=== PATIENT | female | born 1985 | race Caucasian/White ===

== ENCOUNTER 2019-10-22 05:39 | Inpatient (IN) ==
[2019-10-22] MEDS ORDERED: CEFAZOLIN 2,000 MG in SYRINGE 0 ML IV SCH (06:00)
[2019-10-22] MEDS ORDERED: LACTATED RINGER'S 1,000 ML IV SCH ×3 (06:00→11:33)
[2019-10-22] MEDS ORDERED: CITRIC ACID/SODIUM CITRATE 15 ML UDC PO SCH (06:00)
[2019-10-22] MEDS ORDERED: fentaNYL citrate 100 MCG/2 ML VIAL ONE (06:47)
[2019-10-22] MEDS ORDERED: OXYTOCIN 10 UNITS/ML VIAL ONE ×4 (06:47→08:37)
[2019-10-22] MEDS ORDERED: PHENYLEPHRINE HCL 10 MG/ML VIAL ONE (06:47)
[2019-10-22] MEDS ORDERED: METOCLOPRAMIDE HCL INJ 5 MG/ML 2 ML VIAL ONE (06:47)
[2019-10-22] MEDS ORDERED: ONDANSETRON INJ 2 MG/ML 2 ML VIAL ONE (06:47)
[2019-10-22] MEDS ORDERED: MoRPHine SULFATE PF 1 MG/ML 10 ML AMP/VIAL ONE (06:47)
[2019-10-22] MEDS ORDERED: ePHEDrine sulfate 50 MG/ML AMP ONE (06:47)
[2019-10-22 06:48] LABS: Basophils # (auto) 0.05 K/uL (0-0.2); Basophils % (auto) 0.5 %; Eosinophils # (auto) 0.13 K/uL (0-0.5); Eosinophils % (auto) 1.3 %; Hematocrit (blood only) 42.5 % (37-47); Hemoglobin 13.8 g/dL (12.0-16.0); Immature Granulocytes # (auto) 0.03 K/uL (0.00-0.02); Immature Granulocytes % (auto) 0.3 %; Lymphocytes # (auto) 1.91 K/uL (1.2-3.4); Mean Corpuscular Volume 86.4 fL (80-100); Monocytes # (auto) 0.56 K/uL (0.11-0.59); Monocytes % (auto) 5.6 %; Neutrophils # (auto) 7.37 K/uL (1.4-6.5); Neutrophils % (auto) 73.3 %; Platelet Count 225 K/uL (130-400); RDW Coefficient of Variation 14.2 % (11.5-14.5); RDW Standard Deviation 44.1 fL (36.4-46.3); Red Blood Count 4.92 M/uL (4.2-5.4); White Blood Count 10.05 K/uL (4.8-10.8)
[2019-10-22 06:51] LABS: Mean Corpuscular Hgb Conc 32.5 g/dL (32-36)
--- NOTE | 2019-10-22 07:06 | Anesthesiology Consultation ---
Date of Service October 22, 2019 Assessment & Plan Chart Review Chart Review: Acceptable Risk for Surgery Consults Requested none ASA ASA2 Proposed Anesthesia Anesthesia Type: Spinal Risk / Benefits Reviewed With: PT / POA / Parent / Guardian, Accepts Plan and Informed Consent Obtained History Surgery Operation Date: 10/22/19 07:30 Proposed Procedures p Section - [place] MD Height/Weight Height: 5 ft 7 in Weight: 72.575 kg Allergies Allergy/AdvReac Type Severity Reaction Status Date / Time latex Allergy Mild Rash Verified 10/17/19 10:05 Medications Home Medications Medication Instructions Recorded Confirmed Last Taken [id number] oil 4 tab PO QAM 10/17/19 10/17/19 Unknown [ Gummy] vitamin D3-tocophersolan 1 ml PO QAM 10/17/19 10/17/19 Unknown wheat dextrin [Benefiber Sugar 1 packet PO DAILY 10/17/19 10/22/19 Unknown Free (dextrin)] NPO Date Last Intake of Fluids: 10/21/19 Date Last Intake of Solids: 10/21/19 Past Medical History Medical History (Updated 10/22/19 @ 07:14 by Diana Laurent DO) History of anesthesia reaction during last d/t scoliosis issue with epidural Difficult SAB in past w/o complication Scoliosis Exercise / Class Metabolic Activity II 4-5 Yardwork/Stairs/Walk up hill Past Family History Family History Other No family history of adverse response to anesthesia Past Surgical History Surgical History History of adenoidectomy History of section History of colonoscopy History of wisdom tooth extraction Past Anesthesia History No Hx of Anesthesia Complications and No Family Hx of Anesthesia Complications History of PONV No Hx of PONV and No Hx of Motion Sickness Social History Smoking Status: Never smoker Do You Dip or Chew Tobacco: No Hx Alcohol Use: No Hx Substance Use: No substance use type: does not use Physical Exam Vital Signs Last Vital Signs Temp 36.9 C 10/22/19 05:55 Pulse 85 10/22/19 06:08 Resp 18 10/22/19 05:55 BP 108/69 10/22/19 06:08 ENMT Mouth: no TMJ abnormality Thyromental Distance: > or= 3.5 Finger Breadths Mallampati Class: II Neck normal visual inspection and trachea midline; neck extension not limited Respiratory normal respiratory effort Auscultation: lungs clear to auscultation bilaterally Cardiovascular Rate/Rhythm: regular rate and regular rhythm Heart Sounds: no murmur Musculoskeletal Spine: normal cervical ROM Extremities: full ROM of extremities Neurologic moves all extremities Psychiatric Orientation: alert and oriented x 3 Testing Laboratory Results 10/22/19 05:52 Blood Type A Positive 10/22/19 05:52 Antibody Screen NEGATIVE 10/22/19 05:52
[2019-10-22] MEDS ORDERED: NALOXONE HCL 0.4 MG/1 ML VIAL/CARP IV PRN (07:15)
[2019-10-22] MEDS ORDERED: NALBUPHINE HCL INJ 10 MG/ML AMP IV PRN (07:15)
[2019-10-22] MEDS ORDERED: MoRPHine SULFATE 2 MG/ML CARP IV PRN (07:15)
[2019-10-22] MEDS ORDERED: ePHEDrine sulfate 50 MG/ML AMP IV PRN (07:15)
[2019-10-22] MEDS ORDERED: NO NARCOTICS OR SEDATIVES SCH (07:15)
[2019-10-22] MEDS ORDERED: DiphenhydrAMINE HCL 50 MG/ML VIAL IV PRN (07:15)
[2019-10-22] MEDS ORDERED: METOCLOPRAMIDE HCL 20 MG in SODIUM CHLORIDE 0.9% 50 ML IV PRN (07:15)
[2019-10-22] MEDS ORDERED: ONDANSETRON INJ 2 MG/ML 2 ML VIAL IV PRN (07:15)
[2019-10-22] MEDS ORDERED: LACTATED RINGER'S 500 ML IV PRN (07:15)
[2019-10-22] MEDS ORDERED: MoRPHine SULFATE PF 1 MG/ML 10 ML AMP/VIAL INT SPINAL ONE (07:15)
[2019-10-22] MEDS ORDERED: PROMETHAZINE HCL 25 MG in SODIUM CHLORIDE 0.9% 50 ML IV PRN (07:15)
[2019-10-22] MEDS ORDERED: NALOXONE HCL 0.08 MG in SYRINGE 1.8 ML IV PRN (07:15)
[2019-10-22] MEDS ORDERED: NALOXONE HCL 1 MG in SODIUM CHLORIDE 0.9% 1000ML 1,000 ML IV PRN (07:15)
[2019-10-22] MEDS ORDERED: DC INTRASPINAL MORPHINE SCH (07:15)
[2019-10-22] MEDS ORDERED: SODIUM CHLORIDE 0.9% 1000ML 1,000 ML IV SCH (07:15)
--- NOTE | 2019-10-22 07:27 | History & Physical Bridge Note ---
Date of Service October 22, 2019 History & Physical Bridge Note I have examined the patient, reviewed the History & Physical and in the interval since the performance of the History & Physical I have noted the following changes of clinical significance: no changes noted
[2019-10-22] MEDS ORDERED: PHENYLEPHRINE 100MCG/ML 5ML SYR ONE (08:38)
--- NOTE | 2019-10-22 09:07 | Post Operative Brief Note ---
Immediate Post Op Note v1 Date of Surgery October 22, 2019 Pre & Post Diagnosis Operation Date: 10/22/19 07:30 Pre-Op Diagnosis: Previous Section; Desires Repeat Section. Post-Op Diagnosis: Same as Preop I identified the patient and participated in the time-out.: Yes Procedure Operation Date: 10/22/19 07:30 Actual Procedures p Section; Live Male Infant at 0826(Bilateral) - Jae Valerio MD Surgeon Jae Valerio MD Brokerage Coordinator JUAN Valencia Estimated Blood Loss 500 Findings Consistent with Post-Op Diagnosis live male with nuchal cord x1 Apgars 9/9 weight 8-12 Fluids 2000 ml Specimens placenta cord blood Drains Valero Catheter Anesthesia Type Spinal Disposition Accompanied Patient To Recovery: Yes Disposition: L&D Overlapping Procedure I was immediately available: during the entire case. Back up surgeon: was not required during procedure.
--- NOTE | 2019-10-22 09:11 | Anesthesiology Progress Note ---
Date of Service October 22, 2019 Anesthesia Post Procedure Vital Signs Vital Signs: Temp Pulse Resp BP Pulse Ox 10/22/19 09:08 63 98/55 L 96 10/22/19 09:05 62 98/54 L 10/22/19 09:03 65 97 10/22/19 07:16 73 119/78 10/22/19 06:08 85 108/69 10/22/19 05:55 36.9 C 85 18 108/69 Transfer of Care Handoff Completed per policy Notes Mental Status: alert / awake / arousable Patient Amnestic to Procedure: Yes Nausea / Vomiting: adequately controlled Pain: adequately controlled Airway Patency, RR, SpO2: stable & adequate BP & HR: stable & adequate Hydration State: stable & adequate Neuraxial Anesthesia: was administered and sensory block is resolving Anesthetic Complications: no major complications apparent and Pt Satisfied with anesthetic care
[2019-10-22] MEDS: KETOROLAC 30 MG/ML VIAL IV PRN ×2 (11:20→17:02)
[2019-10-22] MEDS ORDERED: BENZOCAINE 20% AER SPR 82.5 GM CAN EXT PRN (11:33)
[2019-10-22] MEDS ORDERED: SENNA 8.6 MG TAB PO PRN (11:33)
[2019-10-22] MEDS ORDERED: DIPHTHERIA/TETANUS/PERTUSSIS 0.5 ML SYR/VIAL IM ONE (11:33)
[2019-10-22] MEDS ORDERED: SUPERCREAM 0.870% 15 GM JAR EXT PRN (11:33)
[2019-10-22] MEDS ORDERED: HYDROCORTISONE ACETATE 25 MG SUPP PR PRN (11:33)
[2019-10-22] MEDS ORDERED: MAGNESIUM HYDROXIDE SUSP 30 ML UDC PO PRN (11:33)
[2019-10-22] MEDS: OXYTOCIN 20 UNITS in LACTATED RINGER'S 1,000 ML IV SCH ×2 (12:14→20:30)
[2019-10-22] MEDS: SIMETHICONE 80 MG CHEW PO SCH ×3 (17:39→20:32)
[2019-10-22] MEDS: DOCUSATE SODIUM 100 MG CAP PO SCH (20:32)
[2019-10-23] MEDS: KETOROLAC 30 MG/ML VIAL IV PRN
[2019-10-23] MEDS ORDERED: PROMETHAZINE HCL 25 MG in SODIUM CHLORIDE 0.9% 50 ML IV PRN (01:15)
[2019-10-23] MEDS ORDERED: KETOROLAC 30 MG/ML VIAL IV PRN (01:15)
[2019-10-23] MEDS ORDERED: DiphenhydrAMINE HCL 50 MG/ML VIAL IV PRN (01:15)
[2019-10-23] MEDS ORDERED: OXYCODONE/ACETAMINOPHEN 5mg/325mg TAB PO PRN (01:15)
[2019-10-23] MEDS ORDERED: ONDANSETRON INJ 2 MG/ML 2 ML VIAL IV PRN (01:15)
[2019-10-23] MEDS ORDERED: LACTATED RINGER'S 500 ML IV ONE (01:40)
[2019-10-23 07:00] LABS: Basophils # (auto) 0.04 K/uL (0-0.2); Basophils % (auto) 0.4 %; Eosinophils # (auto) 0.09 K/uL (0-0.5); Hematocrit (blood only) 35.9 % (37-47); Hemoglobin 11.5 g/dL (12.0-16.0); Immature Granulocytes # (auto) 0.03 K/uL (0.00-0.02); Immature Granulocytes % (auto) 0.3 %; Lymphocytes # (auto) 1.36 K/uL (1.2-3.4); Lymphocytes % (auto) 14.4 %; Mean Corpuscular Hemoglobin 27.6 pg (25-34); Mean Corpuscular Volume 86.3 fL (80-100); Mean Platelet Volume 12.4 fL (7.4-10.4); Monocytes # (auto) 0.68 K/uL (0.11-0.59); Monocytes % (auto) 7.2 %; Neutrophils # (auto) 7.25 K/uL (1.4-6.5); Neutrophils % (auto) 76.7 %; Platelet Count 181 K/uL (130-400); RDW Coefficient of Variation 14.4 % (11.5-14.5); RDW Standard Deviation 44.4 fL (36.4-46.3); Red Blood Count 4.16 M/uL (4.2-5.4); White Blood Count 9.45 K/uL (4.8-10.8)
[2019-10-23] MEDS: PRENATAL VITAMIN 1 TAB PO SCH (07:58)
[2019-10-23] MEDS: DOCUSATE SODIUM 100 MG CAP PO SCH ×2 (07:58→20:24)
[2019-10-23] MEDS: SIMETHICONE 80 MG CHEW PO SCH ×4 (07:58→20:24)
[2019-10-23] MEDS ORDERED: FERROUS SULFATE 325 MG TAB PO SCH (08:00)
[2019-10-23] MEDS ORDERED: [UNRECOGNIZED DRUG - OTHER] PO SCH (09:00)
[2019-10-23] MEDS ORDERED: WHEAT DEXTRIN PO SCH (09:00)
[2019-10-23] MEDS ORDERED: [UNRECOGNIZED DRUG - OTHER] PO SCH (09:00)
--- NOTE | 2019-10-23 09:02 | Obstetrical Progress Note ---
Date of Service October 23, 2019 Assessment & Plan Admission and Anticipated Discharge Date Admission Date: October 22, 2019 Subjective Patient is seen and examined. She feels well, no complaints. Pain is under control with oral meds. Ambulating without dizziness Voiding without difficulty Tolerating regular diet with out N&V Flatus + BM neg Bleeding is minimal No fever/ chills/ CP/ SOB/ N&V/ Leg pain Breast feeding without problems Vital Signs Temp Pulse Pulse Pulse Resp BP BP 10/23/19 07:22 36.7 C 67 16 113/69 10/23/19 03:19 36.2 C L 59 L 20 109/69 10/23/19 02:15 37 C 126 H 20 125/74 10/23/19 01:30 18 10/23/19 00:30 36.7 C 65 20 115/75 10/22/19 23:30 16 10/22/19 22:30 100 H 10/22/19 21:30 18 10/22/19 20:30 18 10/22/19 19:30 36.5 C 58 L 20 108/71 10/22/19 18:00 16 10/22/19 17:10 18 10/22/19 16:00 16 10/22/19 15:20 36.4 C L 63 16 111/72 10/22/19 14:15 18 10/22/19 13:45 16 10/22/19 12:45 36.5 C 16 10/22/19 11:45 35.7 C L 60 16 110/72 10/22/19 11:33 58 L 10/22/19 11:28 54 L 112/72 10/22/19 11:23 52 L 10/22/19 11:18 50 L 109/79 10/22/19 11:13 49 L 10/22/19 11:08 55 L 16 115/83 10/22/19 11:03 50 L 10/22/19 10:58 50 L 111/79 10/22/19 10:53 52 L 10/22/19 10:48 50 L 107/71 10/22/19 10:43 53 L 10/22/19 10:38 50 L 16 107/71 10/22/19 10:33 63 10/22/19 10:28 60 115/73 10/22/19 10:23 56 L 10/22/19 10:18 58 L 106/73 10/22/19 10:13 51 L 10/22/19 10:08 53 L 16 104/73 10/22/19 10:03 53 L 10/22/19 09:58 54 L 16 100/70 10/22/19 09:53 55 L 10/22/19 09:48 52 L 16 100/68 10/22/19 09:45 64 10/22/19 09:43 52 L 10/22/19 09:38 56 L 18 101/65 10/22/19 09:33 57 L 10/22/19 09:28 55 L 16 98/53 L 10/22/19 09:23 56 L 10/22/19 09:18 60 16 97/53 L 10/22/19 09:13 54 L 10/22/19 09:12 58 L 10/22/19 09:08 36.3 C L 63 63 16 98/55 L 98/55 L 10/22/19 09:05 62 98/54 L 10/22/19 09:03 65 Pulse Ox Pulse Ox 10/23/19 07:22 97 10/23/19 03:19 96 10/23/19 02:15 94 10/23/19 01:30 100 10/23/19 00:30 97 97 10/22/19 23:30 95 10/22/19 22:30 10/22/19 21:30 99 10/22/19 20:30 97 10/22/19 19:30 100 10/22/19 18:00 99 10/22/19 17:10 99 10/22/19 16:00 98 10/22/19 15:20 99 10/22/19 14:15 99 10/22/19 13:45 99 10/22/19 12:45 98 10/22/19 11:45 99 10/22/19 11:33 99 10/22/19 11:28 99 10/22/19 11:23 98 10/22/19 11:18 99 10/22/19 11:13 97 10/22/19 11:08 99 10/22/19 11:03 98 10/22/19 10:58 98 10/22/19 10:53 99 10/22/19 10:48 98 10/22/19 10:43 100 10/22/19 10:38 98 10/22/19 10:33 100 10/22/19 10:28 99 10/22/19 10:23 100 10/22/19 10:18 100 10/22/19 10:13 100 10/22/19 10:08 100 10/22/19 10:03 100 10/22/19 09:58 100 10/22/19 09:53 100 10/22/19 09:48 100 10/22/19 09:45 88 L 10/22/19 09:43 100 10/22/19 09:38 100 10/22/19 09:33 99 10/22/19 09:28 100 10/22/19 09:23 98 10/22/19 09:18 97 10/22/19 09:13 97 10/22/19 09:12 94 10/22/19 09:08 100 10/22/19 09:05 10/22/19 09:03 97 Intake and Output 10/22/19 10/23/19 10/23/19 22:59 06:59 14:59 Intake Total 2787.417 / 5504.000 716.583 / 5504.000 Output Total 1275 / 2225 650 / 2225 Balance 1512.417 / 3279.000 66.583 / 3279.000 Intake: IV 1287.417 / 2004.000 716.583 / 2004.000 Pitocin 20 Units In Lr 1,000 ml 1287.417 / 2004.000 716.583 / 2004.000 @ 125 mls/hr IV .Q8H1M [facility] Rx# :[id number] Oral 1500 / 1500 Output: Emesis 900 / 1200 Urine Amount (Catheter) 375 / 1025 650 / 1025 Valero/Indwelling 375 / 1025 650 / 1025 PE: General: Alert, orientedx3, NAD CVS: S1S2 RRR Lungs; CTAB Abd: soft, NT, ND, BS+, fundus firm, below Umbilicus Incision: Clean, dry, intact Perineum intact, Lochia rubra minimal Ext; NT, no edema AP: 34 yo s/p C Section, pod# 1 VSS Afebrile doing well Continue routine postop care Encourage ambulation, PO intake All questions were answered D/C home tomorrow Results & Data ([facility]) Vital Signs (Past 12 Hours) Vital Signs Temp Pulse Pulse Resp BP Pulse Ox Pulse Ox 10/23/19 07:22 36.7 C 67 16 113/69 97 10/23/19 03:19 36.2 C L 59 L 20 109/69 96 10/23/19 02:15 37 C 126 H 20 125/74 94 10/23/19 01:30 18 100 10/23/19 00:30 36.7 C 65 20 115/75 97 97 10/22/19 23:30 16 95 10/22/19 22:30 100 H 10/22/19 21:30 18 99
--- NOTE | 2019-10-23 09:02 | Operative Report (OR) ---
DATE OF OPERATION: 10/22/2019 PREOPERATIVE DIAGNOSIS: Term elective repeat section. POSTOPERATIVE DIAGNOSIS: Term elective repeat section. SURGEON: Jae Valerio MD REPAIRER WELD[employer] SYSTEM[employer] EQUIPMENT: JUAN Valencia. ANESTHESIA: Spinal with Duramorph. CLINICAL HISTORY: The patient is a 33-year-old female 4, para 1-0-2-1, at 39 weeks and 5 days, admitted for elective repeat section after the patient declining trial of labor. The patient was identified prior to the start of the procedure. She was given 2 grams of Ancef and a timeout was then preceded. DESCRIPTION OF PROCEDURE: Under satisfactory spinal anesthesia, the patient was prepped and draped in usual sterile fashion. A low Pfannenstiel incision through a prior scar was then made entering into the abdominal cavity in successive layers without difficulty. Upon entering into the peritoneal cavity, pickups with teeth and Metzenbaums were then used to develop a bladder flap. A low segment transverse incision over the lower uterine segment was made. The incision was widened in the AP diameter. The infant was then delivered with the aid of fundal pressure, a live male from the vertex presentation with a nuchal cord x1 reduced at time of delivery. Delayed cord clamping for 1 minute was accomplished. The cord was doubly clamped and cut and handed to provider relations manager. Apgars were 9 and 9. weight was 8 pounds 12 ounces. Cord blood was then obtained. Placenta delivered spontaneously and intact. Uterus was then exteriorized. Ring forceps were placed on both angles of the inferior margin and another ring was then used to dilate the cervix. Uterus was closed in double layer closure with 0 Vicryl suture in a continuous interlocking fashion followed by a second imbricating suture of 0 Vicryl suture. Tubes and ovaries bilaterally were inspected and were normal. Uterus was then placed back into the normal anatomical position. Initial sponge, needle and instrument count were found to be correct. The contents of the peritoneal cavity and abdominal cavity were then irrigated to clear. No active bleeding was noted. The fascia was then reapproximated from both ends using 0 Vicryl suture in a continuous fashion. Subcuticular space was irrigated. Bleeders were then cauterized. Subcuticular space was closed with 3-0 plain suture in a continuous running fashion and the skin was then reapproximated with 4-0 Monocryl suture. Quarter-inch Steri-Strips were then applied to the bone. The incision was clean, dry and intact. ABD and Telfa dressing were then applied. Valero was clear draining 125 mL TOTAL FLUIDS: 2000 mL. ESTIMATED BLOOD LOSS: 500 mL. Final sponge, needle and instrument count were found to be correct. The patient was then placed supine on a stretcher and taken to recovery room in stable condition. I attest to the content of the Intraoperative Record and any orders documented therein. Any exceptions are noted below. No qualified resident was available. ALVARO
[2019-10-23] MEDS: POLYETHYLENE (MIRALAX) 17 GM PACK PO SCH (09:22)
[2019-10-23] MEDS: ACETAMINOPHEN 325 MG TAB PO PRN ×2 (09:22→18:10)
--- NOTE | 2019-10-23 11:15 | Anesthesiology Progress Note ---
Date of Service October 23, 2019 Anesthesia Post Procedure Vital Signs Vital Signs: Temp Pulse Pulse Pulse Resp BP BP 10/23/19 07:22 36.7 C 67 16 113/69 10/23/19 03:19 36.2 C L 59 L 20 109/69 10/23/19 02:15 37 C 126 H 20 125/74 10/23/19 01:30 18 10/23/19 00:30 36.7 C 65 20 115/75 10/22/19 23:30 16 10/22/19 22:30 100 H 10/22/19 21:30 18 10/22/19 20:30 18 10/22/19 19:30 36.5 C 58 L 20 108/71 10/22/19 18:00 16 10/22/19 17:10 18 10/22/19 16:00 16 10/22/19 15:20 36.4 C L 63 16 111/72 10/22/19 14:15 18 10/22/19 13:45 16 10/22/19 12:45 36.5 C 16 10/22/19 11:45 35.7 C L 60 16 110/72 10/22/19 11:33 58 L 10/22/19 11:28 54 L 112/72 10/22/19 11:23 52 L 10/22/19 11:18 50 L 109/79 Pulse Ox Pulse Ox 10/23/19 07:22 97 10/23/19 03:19 96 10/23/19 02:15 94 10/23/19 01:30 100 10/23/19 00:30 97 97 10/22/19 23:30 95 10/22/19 22:30 10/22/19 21:30 99 10/22/19 20:30 97 10/22/19 19:30 100 10/22/19 18:00 99 10/22/19 17:10 99 10/22/19 16:00 98 10/22/19 15:20 99 10/22/19 14:15 99 10/22/19 13:45 99 10/22/19 12:45 98 10/22/19 11:45 99 10/22/19 11:33 99 10/22/19 11:28 99 10/22/19 11:23 98 10/22/19 11:18 99 Pain Intensity Lower Medial Abdomen: Pain Intensity: 2 Transfer of Care Handoff Completed per policy Notes Mental Status: alert / awake / arousable Nausea / Vomiting: adequately controlled Pain: adequately controlled Airway Patency, RR, SpO2: stable & adequate BP & HR: stable & adequate Hydration State: stable & adequate Neuraxial Anesthesia: was administered and sensory block resolved Anesthetic Complications: no major complications apparent and Pt Satisfied with anesthetic care
[2019-10-23] MEDS: IBUPROFEN 600 MG TAB PO PRN ×3 (11:57→20:24)
[2019-10-23] MEDS ORDERED: bisacodyL 5 MG TABEC PO SCH (20:00)
[2019-10-24] MEDS: IBUPROFEN 600 MG TAB PO PRN ×2 (02:34→08:13)
[2019-10-24] MEDS: ACETAMINOPHEN 325 MG TAB PO PRN ×2 (04:33→10:10)
[2019-10-24 06:43] LABS: Hemoglobin 10.8 g/dL (12.0-16.0)
[2019-10-24] MEDS: POLYETHYLENE (MIRALAX) 17 GM PACK PO SCH (08:13)
[2019-10-24] MEDS: DOCUSATE SODIUM 100 MG CAP PO SCH (08:13)
[2019-10-24] MEDS: SIMETHICONE 80 MG CHEW PO SCH (08:13)
[2019-10-24] MEDS: PRENATAL VITAMIN 1 TAB PO SCH (08:13)
[2019-10-24] MEDS ORDERED: bisacodyL 10 MG SUPP PR PRN (09:08)
--- NOTE | 2019-10-24 10:42 | Surgery Progress Note ---
Date of Service October 24, 2019 Subjective PPD#2 stable planning to go home Physical Exam Constitutional: WD/WN, vitals as above comfortable incision clean dry and intact fundus firm abdomen soft no edema neg Irena's for discharge Results & Data Vital Signs (Past 12 Hours) Vital Signs Temp Pulse Resp BP Pulse Ox 10/24/19 10:04 36.8 C 70 18 110/70 98 10/24/19 08:00 36.8 C 70 18 110/70 98 10/24/19 00:10 36.7 C 70 16 110/61 96 Laboratory Results 10/22/19 10/22/19 10/23/19 05:52 05:52 06:30 WBC 10.05 9.45 RBC 4.92 4.16 L Hgb 13.8 11.5 L Hct 42.5 35.9 L MCV 86.4 86.3 MCH 28.0 27.6 MCHC 32.5 32.0 RDW Std Deviation 44.1 44.4 RDW Coeff of Mike 14.2 14.4 Plt Count 225 181 MPV 13.0 H 12.4 H Immature Gran % (Auto) 0.3 0.3 Neut % (Auto) 73.3 76.7 Lymph % (Auto) 19.0 14.4 Hudson % (Auto) 5.6 7.2 Eos % (Auto) 1.3 1.0 Baso % (Auto) 0.5 0.4 Immature Gran # (Auto) 0.03 H 0.03 H Neut # (Auto) 7.37 H 7.25 H Lymph # (Auto) 1.91 1.36 Hudson # (Auto) 0.56 0.68 H Eos # (Auto) 0.13 0.09 Baso # (Auto) 0.05 0.04 Blood Type A Positive Antibody Screen NEGATIVE 10/24/19 06:01 WBC RBC Hgb 10.8 L Hct 34.0 L MCV MCH MCHC RDW Std Deviation RDW Coeff of Mike Plt Count MPV Immature Gran % (Auto) Neut % (Auto) Lymph % (Auto) Hudson % (Auto) Eos % (Auto) Baso % (Auto) Immature Gran # (Auto) Neut # (Auto) Lymph # (Auto) Hudson # (Auto) Eos # (Auto) Baso # (Auto) Blood Type Antibody Screen
--- NOTE | 2019-11-12 10:38 | Discharge Summary (DS) ---
REASON FOR ADMISSION AND HOSPITAL COURSE: The patient is a 34-year-old female, 4, para 1-0-2-1, at 39 weeks and 5 days, admitted for an elective repeat section. She declined a trial of labor. She underwent a repeat section, delivering a live male. Apgars were 9 and 9. weight was 8 pounds 12 ounces. Hospital course was unremarkable. The patient was then discharged in stable condition. Home going instructions were given. Condition on discharge is stable. Regular diet on discharge. Medications include Percocet and Motrin. Follow up will be in the office for incision check.
== END 2019-10-24 11:58 | disposition home or self-care (01) | DRG 788 ==
LOC: 4S1 05:39 → EDSTATUS 07:30 → 4S2 11:40